=== PATIENT | female | born 1965 | race Caucasian/White ===

== ENCOUNTER → 2016-11-16 12:54 | Outpatient (CLI) | payer BC ==
[2015-09-28 08:28] VITALS: BMI 30.1
[~2016-11-16 12:54] MED LIST: BENZONATATE200 MG PO; DULERA 200 MCG8.8 GM INH; LISINOPRIL-HCTZ1 T13 PO; LORTAB 5/500 TA1 TA2 PO; MOTRIN600 MG PO; NECON PO; PRILOSEC20 MG PO; PROVENTIL HFA6.7 GM INH
== END | disposition home or self-care (01) ==
LOC: D.RT 12:54
DX: R91.1 Solitary pulmonary nodule (principal); J45.909 Unspecified asthma, uncomplicated

== ENCOUNTER → 2018-01-17 09:36 | Outpatient (CLI) | payer BC ==
[2015-09-28 08:28] VITALS: BMI 30.1
[2018-01-17 11:01] LABS: CREATININE - SERUM 0.8 mg/dL (0.6-1.3)
== END | disposition home or self-care (01) ==
LOC: D.RT 09:36
PROVIDERS: Internal Medicine Pulmonary Disease
DX: J45.909 Unspecified asthma, uncomplicated (principal)

== ENCOUNTER → 2019-10-15 11:06 | Outpatient (CLI) | payer BC ==
[2015-09-28 08:28] VITALS: BMI 30.1
== END | disposition home or self-care (01) ==
LOC: D.RT 11:00
PROVIDERS: ATTEND Internal Medicine Pulmonary Disease
DX: J45.909 Unspecified asthma, uncomplicated (principal)

== ENCOUNTER → 2021-01-12 11:42 | Outpatient (CLI) | payer BC ==
[2015-09-28 08:28] VITALS: BMI 30.1
== END | disposition home or self-care (01) ==
LOC: D.LAB 11:42
PROVIDERS: ATTEND Internal Medicine Pulmonary Disease
DX: Z11.52 Encounter for screening for COVID-19 (principal)

== ENCOUNTER → 2021-01-16 10:48 | Outpatient (CLI) | payer BC ==
[2015-09-28 08:28] VITALS: BMI 30.1
== END | disposition home or self-care (01) ==
LOC: D.RT 10:48
PROVIDERS: ATTEND Internal Medicine Pulmonary Disease
DX: J45.909 Unspecified asthma, uncomplicated (principal)